=== PATIENT | female | born 1990 | race Caucasian/White ===

== ENCOUNTER 2020-04-21 04:17 | Emergency (ER) | payer MEDICAID ==
[~2020-04-21] VITALS: Ht 162.6 cm; Wt 105.8 kg
[2020-04-21 04:20] VITALS: BP 122/70
--- NOTE | 2020-04-21 04:58 | NUR ---
PATIENT CHANGED INTO THE HOSPTIAL GOWN, TOLERATED WELL. UPDATED ON PLAN OF CARE. NO NOTED FURTHER NEEDS AT THIS TIME.
--- NOTE | 2020-04-21 06:21 | NUR ---
LAB AT BEDSIDE WITH PATIENT PERFORMING LAB DRAW.
--- NOTE | 2020-04-21 06:33 | NUR ---
PATIENT STATED THAT SHE DID NOT WANT TO BE STICK ANYMORE FOR LABS. TWO PHLEBOTOMISTS HAVE ATTEMPTED TO DRAWN BLOOD, UNSUCCESSFUL. PATIENT UPDATED ON PLAN OF CARE. PROVIDER NOTIFIED OF UNWANT OF ADDITIONAL STICKS. PATIENT DENIES ANY FURTHER NEEDS AT THIS TIME. WILL CONTINUE TO MONITOR.
[2020-04-21] MEDS ORDERED: CLINDAMYCIN 150 MG CAPSULE PO ONE (06:38)
--- NOTE | 2020-04-21 06:45 | NUR ---
MEDICATION NOT AVAILABLE IN [facility]. SENT PHARMACY SLIP. WILL AWAIT ARRIVAL FOR MEDICATION.
--- NOTE | 2020-04-21 06:50 | NUR ---
PATIENT GIVEN FOOD TO IMPROVE OUTCOMES OF TOLERANCE RELATED TO ANTIBIOTICS. PATIENT UPDATED ON PLAN OF CARE. REPORT GIVEN TO SOFYA LUBIN.
--- NOTE | 2020-04-21 07:04 | NUR ---
PT MEDICATED PER EMAR. VSS, NADN. AWAITING DC [facility].
[2020-04-21] MEDS ORDERED: ENOXAPARIN 100 MG/ML ONE (07:28)
[2020-04-21] MEDS ORDERED: ENOXAPARIN 100 MG/ML SQ ONE (07:30)
--- NOTE | 2020-04-21 07:31 | NUR ---
Patient given discharge instructions and they have confirmed that they understand the instructions. Patient ambulatory with steady gait.
== END 2020-04-21 07:32 | disposition home or self-care (01) ==
LOC: ED 04:37
DX: I80.8 Phlebitis and thrombophlebitis of other sites (principal); L03.113 Cellulitis of right upper limb; M79.89 Other specified soft tissue disorders; R50.9 Fever, unspecified; Z90.49 Acquired absence of other specified parts of digestive tract
CPT/HCPCS: 76882; 93971; 96372; 99285; J1650